=== PATIENT | female | born 1940 | race Caucasian/White ===

== ENCOUNTER → 2020-11-17 | Outpatient (CLI) | payer MEDICARE ==
[~2020-11-17] MED LIST: AMLO5TAB4 PO; ASPI-963 PO; ATEN100T PO; CALC500T14 PO; CHOL10003 PO; CYCL1DRO EACHEYE; FISH1CAP PO; FLUT9.9S NAS; GLUC-121 PO; MELA10CA PO; MULT-449 PO; OMEP-110 PO; TRIA1TAB3 PO
[2020-11-17 13:36] LABS: BASOPHILS % (AUTO) 1 % (0-1); EOSINOPHILS % (AUTO) 0 % (1-7); LYMPHOCYTES % (AUTO) 30 % (22-44); MEAN CORPUSCULAR HEMOGLOBIN 30.6 pg (27.0-34.8); MEAN CORPUSCULAR HGB CONC 34.5 g/dL (32.4-35.8); MEAN PLATELET VOLUME 8.1 fL (7.4-10.4); MONOCYTES % (AUTO) 9 % (2-9); NEUTROPHILS % (AUTO) 60 % (42-75); PLATELET COUNT 248 x10^3/uL (130-400); RED CELL DISTRIBUTION WIDTH 13.4 % (9.6-15.2)
[2020-11-17 13:48] LABS: INTERNATIONAL NORMALIZED RATIO 1.01 (0.93-1.1); PROTHROMBIN TIME 10.8 Seconds (9.6-11.5)
[2020-11-17 13:49] LABS: CHLORIDE 105 mmol/L (98-107)
[2020-11-17 14:03] LABS: ALANINE AMINOTRANSFERASE 24 U/L (12-78); ALBUMIN 3.7 g/dL (3.4-5.0); ALKALINE PHOSPHATASE 80 U/L (45-117); ANION GAP 9 mmol/L (5-15); BILIRUBIN,TOTAL 0.4 mg/dL (0.2-1.0); CALCIUM 9.6 mg/dL (8.5-10.1); CREATININE 0.99 mg/dL (0.55-1.02); TOTAL PROTEIN 7.3 g/dL (6.4-8.2)
== END | disposition home or self-care (01) ==
LOC: STAR 11:55
PROVIDERS: ATTEND Orthopaedic Surgery
DX: Z01.812 Encounter for preprocedural laboratory examination (principal); Z20.822 Contact with and (suspected) exposure to COVID-19; M17.12 Unilateral primary osteoarthritis, left knee; I44.0 Atrioventricular block, first degree
CPT/HCPCS: 36415; 80053; 83036; 85025; 85610; 85730; 87081; 93005; U0003; U0005

== ENCOUNTER 2020-11-21 06:34 | Day surgery (SDC) | payer MEDICARE ==
[~2020-11-21] VITALS: Ht 162.6 cm; Wt 82.9 kg
[~2020-11-21 06:34] MED LIST changes: +ROPIvacaine/PF 0.5%, 30 ML ONE; +TRANEXAMIC ACID 100 MG/ML, 10ML ONE
[2020-11-21] MEDS ORDERED: EPINEPHRINE 1 MG/ML, 1ML ONE (06:35)
[2020-11-21] MEDS ORDERED: VANCOMYCIN 1,000 MG ONE (06:35)
[2020-11-21] MEDS ORDERED: SODIUM CHLORIDE 0.9% 100 ML ONE (06:39)
[2020-11-21] MEDS ORDERED: HYDROcodone/APAP 5/325 TABLET PO PRN (07:00)
[2020-11-21] MEDS ORDERED: HYDROmorphone 1 MG/ML, 1ML INJ IV PRN (07:00)
[2020-11-21] MEDS ORDERED: DIPHENHYDRAMINE 50 MG CAPSULE PO PRN (07:00)
[2020-11-21] MEDS ORDERED: ACETAMINOPHEN 650 MG/20.3 ML UDC PO PRN (07:00)
[2020-11-21] MEDS ORDERED: ZOLPIDEM 5MG TABLET PO PRN (07:00)
[2020-11-21] MEDS ORDERED: CEFAZOLIN PMX 2GM/50ML 50 ML IVPB SCH (07:00)
[2020-11-21] MEDS ORDERED: BISACODYL 10 MG SUPP PR PRN (07:00)
[2020-11-21] MEDS ORDERED: ONDANSETRON 4 MG TABLET PO PRN (07:00)
[2020-11-21] MEDS ORDERED: SENNA/DOCUSATE TABLET PO PRN (07:00)
[2020-11-21] MEDS ORDERED: MAGNESIUM HYDROXIDE 8%, 30ML UDC PO PRN (07:00)
[2020-11-21] MEDS ORDERED: OXYcodone IR 5MG TABLET PO PRN (07:00)
[2020-11-21] MEDS ORDERED: ONDANSETRON 2MG/ML, 2ML IV PRN (07:00)
[2020-11-21] MEDS ORDERED: NS + 20MEQ KCL 1,000 ML IV SCH (07:00)
[2020-11-21] MEDS ORDERED: ROPIvacaine/PF 0.5%, 30 ML ONE (07:02)
[2020-11-21] MEDS ORDERED: KETOROLAC 30 MG/1 ML ONE (07:02)
[2020-11-21] MEDS ORDERED: FENTANYL PF 250 MCG/5ML ONE (07:21)
[2020-11-21] MEDS ORDERED: GABAPENTIN 300 MG CAPSULE PO ONE (07:30)
[2020-11-21] MEDS ORDERED: LACTATED RINGERS 1,000 ML IV SCH (07:30)
[2020-11-21] MEDS ORDERED: ACETAMINOPHEN 500 MG TABLET PO ONE (07:30)
[2020-11-21] MEDS ORDERED: CHLORHEXIDINE 15 ML UDC PO ONE (07:30)
[2020-11-21 07:48] VITALS: BP 145/81
[2020-11-21] MEDS ORDERED: CEFAZOLIN 1,000 MG ONE ×2 (08:01→09:12)
[2020-11-21] MEDS ORDERED: LORazepam 2 MG/ML, 1ML IVPush PRN (08:30)
[2020-11-21] MEDS ORDERED: HYDROmorphone 1 MG/ML, 1ML INJ IVPush PRN (08:30)
[2020-11-21] MEDS ORDERED: LABETALOL 5MG/ML, 20ML IV PRN (08:30)
[2020-11-21] MEDS ORDERED: ONDANSETRON 2MG/ML, 2ML IVPush PRN (08:30)
[2020-11-21] MEDS ORDERED: METHOCARBAMOL 1,000 MG in DEXTROSE 5% 100 ML IV PRN (08:30)
[2020-11-21] MEDS ORDERED: hydrALAzine 20 MG/ML, 1ML IV PRN (08:30)
[2020-11-21] MEDS ORDERED: DOCUSATE 100 MG CAPSULE PO SCH (09:00)
[2020-11-21] MEDS ORDERED: AMLODIPINE 5 MG TABLET PO SCH (09:00)
[2020-11-21] MEDS ORDERED: ATENOLOL 100 MG TABLET PO SCH (09:00)
[2020-11-21] MEDS ORDERED: ONDANSETRON 2MG/ML, 2ML ONE (09:12)
[2020-11-21] MEDS ORDERED: PROPOFOL 10 MG/ML, 20ML ONE (09:12)
[2020-11-21] MEDS ORDERED: DEXAMETHASONE 4 MG/ML, 1ML ONE (09:12)
[2020-11-21] MEDS: FENTANYL PF 100 MCG/2ML IV PRN ×2 (09:30→09:45)
[2020-11-21] MEDS: OXYcodone 5 MG/5 ML ORAL.SOL UDC PO PRN ×2 (09:35→10:00)
[2020-11-21] MEDS ORDERED: OXYcodone 5 MG/5 ML ORAL.SOL UDC ONE ×2 (09:35→09:58)
[2020-11-21] MEDS ORDERED: ACETAMINOPHEN 650 MG/20.3 ML UDC ONE (09:35)
[2020-11-21] MEDS ORDERED: FENTANYL PF 100 MCG/2ML ONE (09:35)
[2020-11-21] MEDS ORDERED: PROMETHAZINE 12.5 MG SUPP PR PRN (15:00)
[2020-11-21] MEDS ORDERED: ASPIRIN 81 MG TABLET EC PO SCH (18:00)
[2020-11-22] MEDS ORDERED: DEXAMETHASONE 4 MG/ML, 1ML IVPush SCH (06:00)
== END 2020-11-21 17:30 | disposition home or self-care (01) ==
LOC: OUT 06:34
PROVIDERS: ATTEND Orthopaedic Surgery
DX: M17.12 Unilateral primary osteoarthritis, left knee (principal); M25.562 Pain in left knee; I10 Essential (primary) hypertension; K21.9 Gastro-esophageal reflux disease without esophagitis; Z79.899 Other long term (current) drug therapy; Z98.890 Other specified postprocedural states; Z85.820 Personal history of malignant melanoma of skin
CPT/HCPCS: 27447; 64447; 97162; 97165; C1713; C1776; J0171; J0690; J1100; J1885; J2405; J2704; J2795; J2800; J3010; J3370; J7120